=== PATIENT | female | born 1960 | race Caucasian/White ===

== ENCOUNTER 2024-03-15 09:22 | Emergency (ER) | payer MEDICAID, SELFPAY ==
[2024-03-15 09:23] VITALS: BP 135/64; PULSE 75; RESP 18; TEMP 36.4; O2SAT 98; BMI 22.8
--- NOTE | 2024-03-15 09:36 | EDS_ITS ---
HPI History of Present Illness Chief Complaint: Chest Pain Informant: patient Onset/Context/Timing Onset: Days (4) Activity at onset: gradual Timing: Continuous Quality: Positive for Burning Location: Substernal Worsened By: Nothing Relieved By: - (Sitting up, taking deep breaths) Associated Symptoms: Positive for Lightheadedness and Acid Reflux; Negative for Nausea, Vomiting, Diaphoresis, Dyspnea, Cough, Fever or Palpitations Narrative Narrative: Patient presents with chest pain that has been constant for the past 4 days. Patient states she was restarted on doxycycline for Lyme disease. Patient states that she looked up the side effects of doxycycline and chest pain was one of them. Patient states that the pain has gradually gotten worse. Patient describes her pain as burning sensation. Patient states it is over the lower substernal area. Patient states it feels like reflux disease. Patient states it is better with sitting up and taking a deep breath. Patient denies any shortness of breath. CVD Risk Factors: Negative for Hypertension, Diabetes, Hypercholesterolemia, Family History 1' </=55 or Smoking PE Risk Factors: Negative for Recent Travel/Surgery, Recent Immobilization, Prior DVT or PE, Cancer or OCP + Smoking + >/=35 [facility] Medical History SOB (shortness of breath) Home Medications ?Medication ?Instructions ?Recorded ?Last Taken ?Type doxycycline hyclate 100 mg tablet 100 mg PO BID 03/15/24 Unknown History omeprazole 20 mg capsule,delayed 20 mg PO DAILY #30 CAPSULES 03/15/24 Unknown Rx release Allergy/AdvReac Type Severity Reaction Status Date / Time No Known Allergies Allergy Unverified 10/23/23 09:42 Surgical History H/O wrist surgery Social History Smoking Status: Current every day smoker tobacco type: cigarettes Smokeless tobacco user: other alcohol intake: never substance use type: does not use caffeine: Yes Type: carbonated beverages Number of servings: 4 and coffee Number of servings: 2 ROS ROS ED Constitutional Constitutional ED: Denies chills or fever(s) Eyes Eyes: Denies blurry vision or change in vision ENT ENT ED: Denies rhinorrhea or sore throat Cardiovascular Cardiovascular: Denies chest pain or palpitations Respiratory/Chest Respiratory/Chest: Denies cough or dyspnea Gastrointestinal Gastrointestinal: Denies nausea or vomiting Genitourinary Genitourinary ED: Denies dysuria or hematuria Musculoskeletal Musculoskeletal: Denies back pain or neck pain Integumentary Reports rash; Denies abscess Neurologic Neurologic: Reports headache(s); Denies weakness Allergic/Immunologic Allergic/Immunologic ED: Denies mouth swelling or urticaria EXAM Physical Exam Const Vital Signs: 03/15/24 09:23 03/15/24 09:26 03/15/24 09:58 Temperature 97.5 F L Temperature Source Temporal Pulse Rate 75 Respiratory Rate 18 Respiratory Effort Normal Blood Pressure 135/64 H Blood Pressure Mean 87 Pulse Ox 98 Oxygen Delivery Method Room Air Room Air 03/15/24 10:23 03/15/24 11:00 Temperature Temperature Source Pulse Rate 66 59 L Respiratory Rate 19 H 10 L Respiratory Effort Blood Pressure 129/64 H 132/59 H Blood Pressure Mean 85 83 Pulse Ox 98 98 Oxygen Delivery Method Room Air Room Air Positive well nourished and well developed General Appearance ED: well developed and NAD HEENT Reports moist mucous membranes normocephalic and atraumatic Neck supple and no JVD Resp normal respiratory effort and clear to auscultation bilaterally Cardio regular rate and regular rhythm GI soft to palpation, non-tender and non-distended Extremity normal to inspection General Extremety ED: Negative for edema or tenderness General Extremity: Negative for edema Neuro oriented x3, CN's II-XII intact bilaterally and no sensory deficits noted Sensorium / Orientation: awake and alert Motor Exam: strength 5/5 throughout Psych mental status grossly normal MDM MDM MDM Narrative Medical decision making narrative: Differential diagnosis includes cardiac dysrhythmia, cardiac ischemia, pneumonia, pneumothorax, pulmonary embolism, electrolyte abnormality, musculoskeletal pain, and anxiety. EKG will be obtained to assess for cardiac dysrhythmia and cardiac ischemia. Chest x-ray will be obtained to assess for pneumonia and pneumothorax. CBC will be obtained to assess for leukocytosis and anemia. Basic metabolic profile will be obtained to assess for electrolyte abnormality and renal function. High-sensitivity troponin will be obtained to assess for cardiac ischemia. D-dimer will be obtained to assess for pulmonary embolism. Lab Data Attestation: I reviewed the patient's lab results. Lab results narrative: CBC was reviewed and was within normal limits. Basic metabolic profile was reviewed and was within normal limits. High-sensitivity troponin was reviewed and was normal at 5. D-dimer was reviewed and was elevated at 0.93. Labs: Laboratory Results - last 24 hr 03/15/24 09:20 WBC 7.1 RBC 5.25 Hgb 14.2 Hct 44.9 MCV 85.5 MCH 27.0 MCHC 31.6 L RDW Std Deviation 39.5 RDW Coeff of Supa 12.6 Plt Count 260 MPV 10.1 Immature Gran % (Auto) 0.300 Neut % (Auto) 58.7 Lymph % (Auto) 31.0 [facility] % (Auto) 8.4 Eos % (Auto) 1.0 Baso % (Auto) 0.6 Absolute Neuts (auto) 4.2 Absolute Lymphs (auto) 2.21 Nucleated RBC % 0 D-Dimer Quant (PE/DVT) 0.93 H* Sodium 139 Potassium 4.2 Chloride 105 Carbon Dioxide 28.0 Anion Gap 6 BUN 13 Creatinine 0.84 Estim Creat Clear Calc 57.44 Est GFR (MDRD) Af Amer 88 Est GFR (MDRD) Non-Af 73 BUN/Creatinine Ratio 15.5 Glucose 100 Calcium 9.3 Troponin I High Sens 5 Radiography Diagnostic Testing: Clinical Impression(s) from Imaging Studies Chest X-Ray 03/15/24 09:50 IMPRESSION: Hyperinflation. The lungs are clear. Electronically Signed: Malick Freeman MD at 10:25 EDT , Portable 1 view chest x-ray was obtained. On my independent interpretation, lung hathaway are clear. There is normal cardiac silhouette. Bony thorax is normal. There is no acute process noted. Radiologist also interpreted the x- ray and agrees. Because of the elevated D-dimer, CTA of the chest was ordered. The IV infiltrated prior to obtaining CTA of the chest. There is difficulty starting another IV. Patient did not want any further IV attempts and refused to have the test. EKG Initial EKG: Attestation: I personally reviewed and interpreted this EKG as follows: Interpretation: Sinus Rhythm (74) and Non-Specific ST Changes Comments: EKG was obtained. On my independent interpretation, it showed a normal sinus rhythm with a rate of 74. [place] interval, QRS interval, and QTc intervals were all normal. [place] was normal. There are nonspecific ST-T wave changes. Prior EKG tracings: available for review Prior: Unchanged (05/30/2022) Treatment and Re-Evaluation :: Patient was given aspirin. Patient was also given a GI cocktail. Patient was advised of her findings. Patient was advised of the need for CTA of her chest to rule out pulmonary embolism. Patient states she would prefer to go to [place]. Patient states she feels more comfortable there. Patient does not want any further IV attempts. Patient was advised of the risks and benefits of leaving without getting testing for pulmonary embolism. Patient was advised that she could have a pulmonary embolism which could lead to heart strain and . Patient understands these risks. Patient will sign out AGAINST MEDICAL ADVICE. Patient was advised that this could also just be reflux symptoms as a side effect of the medication. Patient requested a prescription for oral antiacids. Patient was given a prescription for omeprazole. Patient was instructed to take Tums as well. Patient understood and was agreeable with the plan. All questions were answered. Discharge Plan Triage Chief Complaint: Chest Pain ED Provider: Edil Lewis Dx/Rx/DC Orders Clinical Impression: Chest pain, GERD (gastroesophageal reflux disease) Instructions: ED Chest Pain, Uncertain Cause, ED GERD (Adult) Prescriptions: New omeprazole 20 mg capsule,delayed release(DR/EC) 20 mg PO DAILY Qty: 30 0RF No Action doxycycline hyclate 100 mg tablet 100 mg PO BID Primary Care Provider: Care Physician,No Primary Referrals: NOT,DEFINED [Non-Staff] - 5-7 Days Print Language: Amharic Disposition Disposition: Against Medical Advice
--- NOTE | 2024-03-15 09:42 | EKG12_ITS ---
Test Reason : CP Blood Pressure : / mmHG Vent. Rate : 074 BPM Atrial Rate : 074 BPM P-R Int : 144 ms QRS Dur : 064 ms QT Int : 396 ms P-R-T Axes : 074 059 094 degrees QTc Int : 439 ms Normal sinus rhythm Nonspecific ST and T wave abnormality Abnormal ECG Confirmed by JENNI SRINIVASAN, ELI ([id number]), advertising editor RODNEY SHIN ([id number]) on 03/17/2024 9:54:19 AM Referred By: Confirmed By:SRUTHI ARTEAGA MD
--- NOTE | 2024-03-15 09:50 | RAD_ITS ---
STUDY: X-RAY CHEST REASON FOR EXAM: Female, 63 years old. Chest pain TECHNIQUE: Single AP portable view of the chest. COMPARISON: None. FINDINGS: EKG electrodes are seen. There is hyperinflation of the lungs consistent with chronic obstructive lung disease (COPD). There is no demonstrated pleural abnormality. Normal size heart. Normal mediastinum and jeaneth. Normal visualized pulmonary arteries. Normal visualized aortic arch and descending thoracic aorta. Normal visualized thoracic spine. Normal visualized ribs, clavicles, and shoulders. There is no demonstrated abnormality of the visualized soft tissue structures of the upper abdomen. RAD/Chest 1 View (Portable) IMPRESSION: Hyperinflation. The lungs are clear. Electronically Signed: Malick Freeman MD at 10:25 EDT ,
[2024-03-15 09:54] LABS: Absolute Lymphocyte Count 2.21 X10^3/uL (0.83-4.51); Absolute Neutrophil Count 4.2 X10^3/uL (2.0-7.7); Basophil# 0.04 X10^3/uL; Basophil% 0.6 % (0-1); Eosinophil# 0.07 X10^3/uL; Hematocrit 44.9 % (37-47); Hemoglobin 14.2 g/dL (12.0-15.0); Lymphocyte # 2.21 X10^3/ul (0.83-4.51); Mean Corp Hgb Conc 31.6 g/dL (32-36); Mean Corpuscular Volume 85.5 fL (81-99); Mean Platelet Vol. 10.1 fl (6.2-12.0); Monocyte% 8.4 % (0-10); NRBC Flagged by Analyzer 0 % (0-5); Neutrophil # 4.19 X10^3/uL (2.7-7.7); Neutrophil % 58.7 % (47-70); Platelet Count 260 K/mm3 (150-450); RBC Distribution Width CV 12.6 % (11.6-14.6); RBC Distribution Width SD 39.5 fl (35.1-43.9); Red Blood Count 5.25 M/mm3 (4.2-5.4); White Blood Count 7.1 K/mm3 (4.4-11.0)
[2024-03-15] MEDS: Aspirin 81 MG TAB.CHEW 324 MG PO (09:54)
[2024-03-15] MEDS: Lidocaine 2% Viscous15 ML UDC 15 ML PO (09:54)
[2024-03-15] MEDS: Mag Hydrox/Al Hydrox/Simeth 30 ML UDC PO (09:55)
[2024-03-15 10:23] VITALS: BP 129/64; PULSE 66; RESP 19; O2SAT 98
[2024-03-15 10:33] LABS: Anion Gap 6 (5-15); BUN 13 mg/dL (7-18); BUN/Creat Ratio 15.5 RATIO (10-20); Calcium,Total 9.3 mg/dL (8.5-10.1); Chloride 105 mmol/L (98-107); Creatinine, Serum 0.84 mg/dL (0.55-1.02); D-Dimer Quantitative (DVT/PE) 0.93 FEU/ug/m (0.27-0.49); EST Glomerular Filtration Rate 73 mL/min (>60); Est Glom Filt Rate - Afr Amer 88 mL/min (>60); Estimated Creatinine Clearance 57.44 ml/min; Glucose 100 mg/dL (74-106); Potassium 4.2 mmol/L (3.5-5.1); Sodium Level 139 mmol/L (136-145); Troponin-I HS 5 pg/mL (3.0-54.0)
[2024-03-15 11:00] VITALS: BP 132/59; PULSE 59; RESP 10; O2SAT 98
--- NOTE | 2024-03-15 11:53 | ED.RN ---
PT REQUESTING TO TRANSFER TO [place]. STATES I'VE BEEN POKED ENOUGH. I JUST DON'T FEEL COMFORTABLE HERE. EMOTIONAL SUPPORT PROVIDED. PT SPOKE W/PHYSICIAN.
== END 2024-03-15 11:55 | disposition left against medical advice (07) ==
PROVIDERS: Emergency Provider Emergency Medicine; Visit Provider Emergency Medicine
DX: R07.9 Chest pain, unspecified (principal); K21.9 Gastro-esophageal reflux disease without esophagitis; F17.210 Nicotine dependence, cigarettes, uncomplicated; R51.9 Headache, unspecified
CPT/HCPCS: 71045; 80048; 84484; 85025; 85379; 93005; 99284; A4216

== ENCOUNTER → 2024-04-20 | Outpatient (CLI) | payer MEDICAID, SELFPAY ==
[2024-04-20 13:02] LABS: Vitamin D,25 Hydroxy 32.6 ng/mL
[2024-04-20 13:20] LABS: Cholesterol 184 mg/dL (200); High Density Lipoprotein 70 mg/dL; Triglycerides 74 mg/dL; Very Low Density Lipoprotein 15 mg/dL (5-40)
== END | disposition home or self-care (01) ==
LOC: VSLAB 08:53
PROVIDERS: Visit Provider Family Medicine
DX: E04.1 Nontoxic single thyroid nodule (principal); E55.9 Vitamin D deficiency, unspecified
CPT/HCPCS: 36415; 80061; 82306; 84443